=== PATIENT | female | born 1940 | race Caucasian/White ===

== ENCOUNTER 2023-10-03 13:14 | Emergency (ER) | payer MEDICARE, SELFPAY ==
--- NOTE | ~2023-10-03 | XR_ITS ---
E INATION: CXR CHEST CLINICAL INFORMATION: COMPARISON: NNone available. TECHNIQUE: 22 views of the chest were obtained. FINDINGS: TNo significant abnormality is noted involving the heart, lungs, mediastinum, bony thorax or soft tissues. The heart sizUnremarkable examination.ty is normal. There is mild dextro scoliosis dorsolumbar spine spine. No bony thorax abnormality seen. XR/XR chest 2V IMPRESSION: Expanded lungs with bibasilar atelectasis.
[2023-10-03 13:17] VITALS: BP 160/87; PULSE 99; RESP 18; TEMP 36.4; O2SAT 96; BMI 26.1
[2023-10-03 14:41] LABS: Influenza A PCR NEGATIVE (Negative); Influenza B PCR NEGATIVE (Negative); Resp Syncy Virus RNA Qual PCR POSITIVE (Negative); SARS COV2 PCR INHOUSE NEGATIVE (Negative)
--- NOTE | 2023-10-03 16:59 | ED.URI ---
HPI - URI/Sore Throat General Chief Complaint: Upper Respiratory Symptoms Stated Complaint: Productive Cough Time Seen by Provider: 10/03/23 16:58 Source: patient and family ( Spouse) Mode of arrival: ambulatory Limitations: no limitations History of Present Illness HPI Narrative: 83-year-old female relatively healthy came in with her complaining of productive cough with greenish sputum, subjective fever, generalized body ache, lack of energy, decreased p.o. intake for the past 2-3 days, no sick contacts, no recent travel. Patient had her physical last week stated that everything was fine including blood workup. Patient brought her with similar symptoms. Related Data Allergies Allergy/AdvReac Type Severity Reaction Status Date / Time No Known Allergies Allergy Verified 10/03/23 13:16 Review of Systems Review of Systems: All other systems are reviewed and are negative Constitutional: Reports as per HPI and Reports no additional constitutional complaints Eyes: Reports as per HPI and Reports no additional eye complaints Reports system reviewed and no additional complaints, except as documented Cardiovascular: Reports as per HPI and Reports no additional cardiovascular complaints Respiratory: Reports as per HPI and Reports no additional respiratory complaints Gastrointestinal: Reports as per HPI and Reports no additional gastrointestinal complaints Genitourinary: Reports no additional female genitourinary complaints Musculoskeletal: Reports no additional musculoskeletal complaints Skin/Breast: Reports system reviewed and no additional complaints, except as docu Psychiatric: Reports no additional psychiatric complaints Endocrine: Reports no additional endocrine complaints Hematologic/Lymphatic: Reports no additional hematologic/lymphatic complaints Allergic/Immunologic: Reports no additional allergic/immunologic complaints Reports system reviewed and no additional complaints, except as documented and Reports Abnormal speech present Physical Exam Vital Signs: Vital Signs: Last Vital Signs Temp 97.6 F 10/03/23 13:17 Pulse 99 10/03/23 13:17 Resp 18 10/03/23 13:17 BP 160/87 H 10/03/23 13:17 Pulse Ox 96 10/03/23 13:17 O2 Del Method Room Air 10/03/23 13:17 BMI result Body Mass Index 26.1 Vital signs have been reviewed and appear to be correct. Blood pressure elevated. Heart rate normal. Respiratory rate normal. Temperature normal. Oxygen saturation normal. Appearance: Alert. Oriented X3. No acute distress. Head: Normal external exam. Normocephalic. Atraumatic. No [place] signs noted. No raccoon eyes noted Eyes: PERRLA. EOMI. Conjunctiva and sclera normal. Eyelids normal. ENT: TM's Normal. Pharynx normal. Uvula midline. Moist mucous membranes. No trismus noted. No drooling noted. No muffled voice noted. Neck: Normal inspection. Neck supple. FROM. No adenopathy. Thyroid Normal. No meningeal signs. No neck mass noted. CVS: Normal heart rate and rhythm. Heart sound normal. No murmurs noted. Pulses normal throughout. Respiratory: No respiratory distress. Painless inspiration. Breath sounds normal. No wheezes/rales/rhonchi noted. Chest nontender. No accessory muscle usage noted or decreased air movement noted. Abdomen: Soft and nontender. Bowel sounds normal in all 4 quadrants. No distention noted. No organomegaly noted. No visible injury noted. Back: No CVA tenderness. Full range of motion noted. Skin: Skin warm and dry. Normal skin color. Normal skin turgor. No rashes/lesions/lacerations noted. Extremities: No lower extremity edema. Extremities exhibit normal range of motion. Extremities nontender. Neuro: Oriented X 3. Cranial nerve exam: II-XII are grossly intact No motor deficit. No sensory deficit. Reflexes normal. Course Reevaluation(s) Reevaluation #1: 83-year-old female with productive cough, VSS, O2 sat 97% on room air, x-ray shows no infiltrate or pneumonia. was instructed to drink plenty of fluid and self-quarantine with frequent hand washing. Time: 17:12 Medical Decision Making Differential Diagnosis Differential Diagnoses: The differential diagnosis associated with the presentation includes ( RSV, coronavirus infection, influenza, pneumonia, pneumothorax, hypoxia.) Admission/Observation Consideration of admission/observation: Escalation of care including admission/observation considered Lab Data MDM Lab Attestation statement: I reviewed the patient's lab results. Labs: Lab Results 10/03/23 Range/Units 14:00 Influenza Type A (PCR) NEGATIVE (Negative) Influenza Type B (PCR) NEGATIVE (Negative) RSV RNA Qual (PCR) POSITIVE A (Negative) SARS-CoV-2 RNA (RT-PCR) NEGATIVE (Negative) Independent Interpretation I performed an independent interpretation of an: Plain X-Ray ( Chest: No acute intrathoracic pathology.) Radiology Impression Discussion of test interpretation with radiology: I have reviewed the radiologist's reading. Discharge Plan Discharge Clinical Impression: Acute bronchitis due to respiratory syncytial virus (RSV) Patient Disposition: Home, Self-Care Instructions: Respiratory Syncytial Virus (ED) Referrals: Jose De Jesus Tate MD [Primary Care Provider] -
[2023-10-03 17:06] VITALS: BP 155/71; PULSE 76; RESP 20; TEMP 36.8; O2SAT 97
--- NOTE | 2023-10-03 17:11 | MHC.EDTECH ---
THIS PCT JUST ASSUMED CARE OF PT, VITALS TAKEN ,CALL [facility] WITHIN PT REACH .
[2023-10-03 18:20] VITALS: BP 162/84; PULSE 88; RESP 16; TEMP 36.8; O2SAT 95
== END 2023-10-03 19:07 | disposition home or self-care (01) ==
PROVIDERS: Physician Assistant Medical; Emergency Provider Emergency Medicine; PCP Family Medicine
DX: J20.5 Acute bronchitis due to respiratory syncytial virus (principal); R05.9 Cough, unspecified; R50.9 Fever, unspecified; Z20.822 Contact with and (suspected) exposure to COVID-19; Z20.828 Contact with and (suspected) exposure to other viral communicable diseases
CPT/HCPCS: 0241U; 71046; 99283; 99284